=== PATIENT | female | born 1965 | race Hispanic/Latino ===

== ENCOUNTER 2017-01-20 17:19 | Emergency (ER) | payer OTHER, SELFPAY ==
[2017-01-20] MEDS ORDERED: Naproxen 500 MG TAB ONE (17:46)
== END 2017-01-20 18:00 | disposition home or self-care (01) ==
LOC: MADERS 17:19
DX: M54.41 Lumbago with sciatica, right side (principal); Z87.891 Personal history of nicotine dependence; X50.9XXA Other and unspecified overexertion or strenuous movements or postures, initial encounter; Y92.129 Unspecified place in nursing home as the place of occurrence of the external cause
CPT/HCPCS: 99283

== ENCOUNTER 2018-06-17 08:19 | Emergency (ER) | payer SELFPAY ==
[2018-06-17 09:02] LABS: #Eosinphils 0.2 thou/uL (0.0-0.7); #Lymphocytes 1.4 thou/uL (1.20-3.40); #Monocytes 0.3 thou/uL (0.11-0.59); #Neutrophils 2.8 thou/uL (1.40-6.50); %Lymphocytes 29.3 % (21.0-51.0); %Neutrophils 58.7 % (42.0-75.0); Mean Corpuscular HGB CONC 32.4 g/dL (32.0-36.0); Mean Corpuscular Hemoglobin 29.2 pg (27.0-31.0); Mean Corpuscular Volume 90.3 fL (78.0-98.0); Mean Platelet Volume 6.8 fL (7.4-10.4); Platelet Count 238 thou/uL (130-400); RBC Distribution Width 12.6 % (11.5-14.5); White Blood Cell (WBC) Count 4.8 thou/uL (4.8-10.8)
[2018-06-17 09:18] LABS: ALT (SGPT) 28 U/L (8-55); AST (SGOT) 19 U/L (5-34); Albumin 4.1 g/dL (3.5-5.0); Alkaline Phosphatase 108 U/L (40-150); Anion Gap 13 mmol/L (10-20); BUN (Urea Nitrogen) 16 mg/dL (9.8-20.1); Calc. Creatinine Clearance 0 mL/min (70-130); Carbon Dioxide 25 mmol/L (22-29); Chloride 106 mmol/L (98-107); Estimated GFR-MDRD 84; Globulin 3.3 g/dL (2.4-3.5); Glucose 122 mg/dL (70-105); Potassium 4.2 mmol/L (3.5-5.1); Protein, Total 7.4 g/dL (6.0-8.3); Sodium 140 mmol/L (136-145)
--- NOTE | 2018-06-17 09:31 | RAD ---
PORTABLE CHEST: History: Left sided numbness. FINDINGS: Lungs are clear of infiltrate. Heart and mediastinum are unremarkable. IMPRESSION: No acute findings. POS: [facility]
--- NOTE | 2018-06-17 10:06 | CT ---
CT BRAIN WITHOUT CONTRAST: HISTORY: Left-sided numbness and difficulty swallowing. FINDINGS: No evidence of infarct, hemorrhage, midline shift, or abnormal extraaxial fluid collections is seen. The ventricular size is normal, and the basilar cisterns are patent. The bony calvarium is intact. The visualized paranasal sinuses and mastoid air cells are well aerated. IMPRESSION: No CT evidence of acute intracranial process. POS: [facility]
== END 2018-06-17 10:00 | disposition home or self-care (01) ==
LOC: MADERS 08:19
DX: R20.0 Anesthesia of skin (principal); Z87.891 Personal history of nicotine dependence; F41.0 Panic disorder [episodic paroxysmal anxiety]
CPT/HCPCS: 70450; 71045; 80053; 84484; 85025; 93005

== ENCOUNTER 2018-12-16 21:01 | Outpatient (CLI) | payer SELFPAY ==
--- NOTE | 2018-12-16 21:27 | RAD ---
XR Ribs Lt>=2 View STANDARD HISTORY: Chest wall pain after fall COMPARISON: None. FINDINGS: There are no signs of fracture. No evidence of pneumothorax. IMPRESSION: Negative left ribs.
== END 2018-12-16 21:02 | disposition home or self-care (01) ==
LOC: MADRAD 21:01
PROVIDERS: ATTEND Family Medicine
DX: R07.89 Other chest pain (principal); W19.XXXA Unspecified fall, initial encounter